=== PATIENT | male | born 1965 | race Caucasian/White ===

== ENCOUNTER 2024-03-07 10:29 | Emergency (ER) | payer BC, OTHER ==
[~2024-03-07] VITALS: Ht 182.9 cm; Wt 122.3 kg
[2024-03-07] MEDS ORDERED: LISI40TA4 PO (10:49)
[2024-03-07] MEDS ORDERED: ASPI81CH48 PO (10:49)
[2024-03-07] MEDS ORDERED: AMLO1TAB25 PO (10:49)
[2024-03-07] MEDS ORDERED: HYDR12CA PO (10:49)
[2024-03-07] MEDS ORDERED: CARV6.25 PO (10:49)
[2024-03-07] MEDS ORDERED: ALBU8.5H INH (10:49)
[2024-03-07] MEDS ORDERED: ATOR1TAB21 PO (10:49)
[2024-03-07] MEDS: KETOROLAC 60MG 2ML VIAL IM ONE (13:34)
[2024-03-07] MEDS ORDERED: DICL75TA PO (14:22)
[2024-03-07] MEDS ORDERED: CYCL-707 PO (14:22)
[2024-03-07 14:33] VITALS: BP 166/88; TEMP 97.6; O2SAT 97
== END 2024-03-07 14:35 | disposition home or self-care (01) ==
LOC: M ED 10:29
DX: S22.089A Unspecified fracture of T11-T12 vertebra, initial encounter for closed fracture (principal); M16.0 Bilateral primary osteoarthritis of hip; Y92.9 Unspecified place or not applicable; Y93.9 Activity, unspecified; Y99.9 Unspecified external cause status; W10.8XXA Fall (on) (from) other stairs and steps, initial encounter; I10 Essential (primary) hypertension; F12.10 Cannabis abuse, uncomplicated; Z79.51 Long term (current) use of inhaled steroids; Z79.1 Long term (current) use of non-steroidal anti-inflammatories (NSAID); Z79.899 Other long term (current) drug therapy
CPT/HCPCS: 72131; 73502; 96372; 99283; J1885